=== PATIENT | female | born 1970 | race Caucasian/White ===

== ENCOUNTER 2020-12-12 09:15 | Outpatient (CLI) | payer OTHER, SELFPAY ==
--- NOTE | ~2020-12-12 | MM_ITS ---
EXAMINATION: MM screening bryan BI w aleksandr HISTORY: Screening mammogram, family history of breast cancer in her mother and sister. TECHNIQUE: Craniocaudal and mediolateral oblique 3-D tomosynthesis images were obtained and synthetic 2-D images were generated. CAD analysis was submitted and interpreted. COMPARISON: 04/21/2019, 01/29/2018 BREAST PARENCHYMAL COMPOSITION: The breasts are heterogeneously dense, which may obscure small masses . FINDINGS: RIGHT BREAST: There is no evidence of suspicious mass, calcification, or architectural distortion to suggest malignancy. There has been no significant interval change. LEFT BREAST: There is a spiculated mass in the posterior third of the upper outer quadrant of the aidan ast 13 cm from the nipple. IMPRESSION: 1. Left breast mass. 2. Additional mammographic views and possible breast ultrasound are recommended. BI-RADS Category 0: Incomplete: Needs additional imaging evaluation. Reviewed, dictated and finalized at location A. IMPRESSION: 1. Left breast mass. 2. Additional mammographic views and possible breast ultrasound are recommended . BI-RADS Category 0: Incomplete: Needs additional imaging evaluation.
== END 2020-12-12 09:16 | disposition home or self-care (01) ==
LOC: ANHIMG 09:21
PROVIDERS: PCP Family Medicine; Visit Provider Nurse Practitioner Family
DX: Z12.31 Encounter for screening mammogram for malignant neoplasm of breast (principal); R92.8 Other abnormal and inconclusive findings on diagnostic imaging of breast
CPT/HCPCS: 77063; 77067

== ENCOUNTER 2020-12-21 11:38 | Outpatient (CLI) | payer OTHER, SELFPAY ==
--- NOTE | ~2020-12-21 | MMUS_ITS ---
EXAMINATION: MM diagnostic mammo unilat LT, US breast LT limited HISTORY: Left breast mass on screening mammogram TECHNIQUE: Additional 3-D tomosynthesis images of the left breast were performed and synthetic 2-D im ages were generated. CAD analysis was submitted and interpreted. High resolution limited left breast ultrasound was performed. COMPARISON: 12/12/2020, 04/21/2019, 01/29/2018 FINDINGS: MAMMOGRAPHIC FINDINGS: There is a 1.5 x 0.8 cm irregular high density mass with spiculated margins in the posterior third of the upper outer quadrant breast at the 3:00 location 12 cm from the nipple. ULTRASOUND: There is a 1.4 x 0.9 cm irregular, not parallel, hypoechoic mass with spiculated margins at the 3:00 location 10 cm from the nipple. The mass demonstrates posterior acoustic shadowing and no definite in ternal vascularity. IMPRESSION: 1. Suspicious left breast mass. 2. Ultrasound-guided biopsy is recommended. BI-RADS category 5, highly suggestive of malignancy. Reviewed, dictated and finalized at location A. IMPRESSION: 1. Suspicious left breast mass. 2. Ultrasound-guided biopsy is recommended. BI-RADS category 5, highly suggestive of malignancy.
== END 2020-12-21 11:39 | disposition home or self-care (01) ==
LOC: ANHIMG 11:39
PROVIDERS: PCP Family Medicine; Visit Provider Nurse Practitioner Family
DX: R92.8 Other abnormal and inconclusive findings on diagnostic imaging of breast (principal)
CPT/HCPCS: 76642; 77065

== ENCOUNTER 2021-01-03 08:57 | Outpatient (CLI) | payer OTHER, SELFPAY ==
--- NOTE | ~2021-01-03 | US_ITS ---
EXAMINATION: US GUIDED NEEDLE BIOPSY DATE: 01/03/2021 10:32 CDT INDICATION: Suspicious sonographic mass at 3:00 12 cm from nipple TECHNIQUE AND FINDINGS: The risks and potential benefits of the procedure were discussed with the patient, and written inform ed consent was obtained. Timeout procedure was performed. After sterile preparation of the left breas t, 1% lidocaine was utilized for local anesthesia. A 14G spring-loaded biopsy gun needle was advanced to the edge of the region of interest from a media l approach utilizing sonographic guidance. A total of three tissue core samples were obtained throug h the lesion. An Inrad tissue marker clip was then placed at the biopsy site. Hemostasis was achieve d. A sterile bandage was applied. The patient tolerated procedure well and there was no evidence of immediate complication. The patien t was given verbal instructions prior to departing from the department. A two view mammogram was perf ormed to document tissue marker clip placement. The tissue samples were submitted to surgical patholo gy for histologic analysis. IMPRESSION: 1. Successful ultrasound guided biopsy of 3:00 left breast mass with biopsy marker placement. Please refer to pathology report for histologic analysis. Reviewed, dictated and finalized at Location A. Reviewed, dictated and finalized at location A. IMPRESSION: 1. Successful ultrasound guided biopsy of 3:00 left breast mass with biopsy ma rker placement. Please refer to pathology report for histologic analysis.
--- NOTE | ~2021-01-03 | MM_ITS ---
MM post biopsy invasive LT DATE: 01/03/2021 10:14 INDICATION: Post ultrasound-guided biopsy mammogram TECHNIQUE: Digital ML and cc views following ultrasound-guided biopsy of 3:00 lesion COMPARISON: 01/03/2021 ultrasound biopsy procedure left breast 12/21/2020 diagnostic left mammogram and limited left breast ultrasound FINDINGS: A biopsy marker is present in the outer mid left breast approximately 9 cm from nipple, sev eral centimeters anterior to the area of interest. This may be due to migration of the biopsy marker from the biopsy site. However, should the biopsy results come back negative, surgical biopsy is indic ated with mammographic localization to ensure that the area of abnormality on the mammogram is defini tively sampled and biopsied. IMPRESSION: Status post ultrasound-guided biopsy of 3:00 left breast lesion; marker is in unexpected position 3 cm anterior to the mammographic area of interest. Should the biopsy comes back negative, s urgical biopsy with mammographic localization is recommended Reviewed, dictated and finalized at Location A. Reviewed, dictated and finalized at location A. IMPRESSION: Status post ultrasound-guided biopsy of 3:00 left breast lesion; ma rker is in unexpected position 3 cm anterior to the mammographic area of intere st. Should the biopsy comes back negative, surgical biopsy with mammographic lo calization is recommended
== END 2021-01-03 08:58 | disposition home or self-care (01) ==
LOC: ANHIMG 09:00
PROVIDERS: PCP Nurse Practitioner Family; Visit Provider Nurse Practitioner Family
DX: C50.812 Malignant neoplasm of overlapping sites of left female breast (principal)
CPT/HCPCS: 19083; 88305; 88360; A4648

== ENCOUNTER 2021-01-08 02:14 | Day surgery (SDC) | payer OTHER, SELFPAY ==
[2020-12-28 14:51] VITALS: BMI 32.9
[2021-01-08 09:16] VITALS: BP 137/79; PULSE 73; RESP 16; TEMP 35.7; O2SAT 99; BMI 32.7
--- NOTE | 2021-01-08 09:42 | PM.HPGS ---
History of Present Illness History of Present Illness Consent: Risks, benefits, and alternatives have been discussed and questions answered. Patient agrees to proceed with procedure. Chief complaint: neoplasm screening Narrative: Mitzy Núeñz is a 50 year old female Referred for screening colonoscopy Review of Systems Review of Systems: All systems reviewed & are unremarkable except as noted in HPI and below PMFSH Past Medical History Medical History BMI 33.0-33.9,adult Screening mammogram, encounter for Family History Family History Sibling Hypertension Family history of malignant neoplasm of breast in first degree relative Social History Social History Smoking status: Never smoker Second hand tobacco smoke exposure: No Alcohol intake: current Substance use: never Substance use type: does not use Living arrangements: with family Gender identity (if verbalized by the patient): Female Sexual Orientation (if Verbalized by the Patient): Straight or Heterosexual Spiritual care concerns: No Meds Home Medications and Allergies Home Medications Medication Instructions Recorded Confirmed Type cholecalciferol (vitamin D3) 1,250 1,250 mcg PO WEEKLY 11/16/20 01/08/21 History mcg (50,000 unit) capsule famotidine 20 mg tablet 20 mg PO DAILY #90 tablet 11/16/20 01/08/21 Rx venlafaxine 75 mg capsule,extended 75 mg PO DAILY #90 cap 11/16/20 01/08/21 Rx release 24 hr Allergies Allergy/AdvReac Type Severity Reaction Status Date / Time oxycodone Allergy Severe RASH, HIVES Verified 01/08/21 09:27 phentermine Allergy Mild hives Verified 01/08/21 09:27 Vital Signs Vital Signs - 24 hr 01/08/21 09:16 Temperature 35.7 C L Pulse Rate 73 Respiratory Rate 16 Blood Pressure 137/79 Pulse Oximetry 99 Exam Resp: Auscultation: clear to auscultation bilaterally Cardio: Rate: regular rate Rhythm: regular rhythm GI: GI Palp: Yes Soft to palpation and No Tenderness to palpation present (GI) Assessment and Plan Assessment and plan (1) Screening for colon cancer: Code(s): Z12.11 - Encounter for screening for malignant neoplasm of colon Status: Acute Assessment and Plan: Colonoscopy with possible biopsy or polypectomy or cautery or injection of substances.
--- NOTE | 2021-01-08 09:52 | WPDANESEPPF ---
Anes - Initial Pre Proc Eval Procedure: Operation Date: 01/08/21 10:00 Proposed Procedures p Screening Colonoscopy - Michael Denis MD Date/Time: 01/08/21 09:52 Surgeon: Michael Denis MD Pre Op Diagnosis: neoplasm screening Patient Data Age: 50 Gender: F Height: 1.55 m Weight: 78.5 kg Last Vital Signs Temp 35.7 C L 01/08/21 09:16 Pulse 73 01/08/21 09:16 Resp 16 01/08/21 09:16 BP 137/79 01/08/21 09:16 Pulse Ox 99 01/08/21 09:16 Allergies Allergy/AdvReac Type Severity Reaction Status Date / Time oxycodone Allergy Severe RASH, HIVES Verified 01/08/21 09:27 phentermine Allergy Mild hives Verified 01/08/21 09:27 Home Medications Medication Instructions Recorded Confirmed Type cholecalciferol (vitamin D3) 1,250 1,250 mcg PO WEEKLY 11/16/20 01/08/21 History mcg (50,000 unit) capsule famotidine 20 mg tablet 20 mg PO DAILY #90 tablet 11/16/20 01/08/21 Rx venlafaxine 75 mg capsule,extended 75 mg PO DAILY #90 cap 11/16/20 01/08/21 Rx release 24 hr Patient hx anesthesia problems: none Family hx anesthesia problems: none PMFSH Past Medical History Medical History BMI 33.0-33.9,adult Screening mammogram, encounter for Family History Family History Sibling Hypertension Family history of malignant neoplasm of breast in first degree relative Social History Social History Smoking status: Never smoker Second hand tobacco smoke exposure: No Alcohol intake: current Substance use: never Substance use type: does not use Living arrangements: with family Gender identity (if verbalized by the patient): Female Sexual Orientation (if Verbalized by the Patient): Straight or Heterosexual Spiritual care concerns: No Anes - Eval Final PreProcedure Day of Procedure 01/08/21 09:52 Patient weight: obese Heart: regular rate and rhythm Lungs: clear to auscultation Airway: Mallampati scale class II Neurological: alert and oriented Last oral intake: >/= 8 hours ASA classification: II Emergent: no Anesthetic plan: proceed Anesthesia type and monitoring: general GIVS and standard monitoring Informed Consent: The patient's anesthetic plan and its attendant risks and benefits were discussed with the patient/family/POA. Questions were solicited and answers provided to the satisfaction of the patient/family/POA.
[2021-01-08] MEDS: LACTATED RINGERS 1,000 ML 150 ML IV CONT (10:14)
[2021-01-08 10:36] VITALS: BP 119/73; PULSE 79; RESP 12; O2SAT 99
[2021-01-08 10:46] VITALS: BP 110/54; PULSE 70; RESP 18; O2SAT 100
[2021-01-08 10:56] VITALS: BP 122/76; PULSE 70; RESP 18; O2SAT 100
== END 2021-01-08 11:07 | disposition home or self-care (01) ==
PROVIDERS: PCP Nurse Practitioner Family; Visit Provider Internal Medicine Gastroenterology
PROC: 0DJD8ZZ Inspection of Lower Intestinal Tract, Via Natural or Artificial Opening Endoscopic (ICD-10-PCS; CPT 45378; principal; 2021-01-08 10:00)
DX: Z12.11 Encounter for screening for malignant neoplasm of colon (principal); E66.9 Obesity, unspecified; Z68.32 Body mass index [BMI] 32.0-32.9, adult
CPT/HCPCS: 45378; J1200; J2704; J7120

== ENCOUNTER 2021-01-23 09:38 | Outpatient (CLI) | payer OTHER, SELFPAY ==
--- NOTE | ~2021-01-23 | MR_ITS ---
EXAMINATION: MR breast BI wo/w con INDICATION: Malignant neoplasm of the upper outer quadrant of the left breast TECHNIQUE: Axial VIBRANT pre and dynamic post contrast, Sagittal VIBRANT post contrast, Axial T2 STIR ASSET COMPARISON: None CONTRAST: Multihance, 15 cc BREAST COMPOSITION: Heterogeneous fibroglandular tissue FINDINGS: RIGHT BREAST: There is marked background parenchymal enhancement. No definite abnormal enhancement is present after contrast administration. No pathologically enlarged axillary or internal mammary lymph nodes are identified. LEFT BREAST: There is marked background parenchymal enhancement. There is an approximately 3.1 x 2.3 x 3.5 cm irregular mass with spiculated margins in the upper-outer quadrant at the 2:00 location in t he middle/posterior third of the breast 8.5 cm from the nipple with heterogeneous enhancement. There are approximately 3 cm of linear nonmass enhancement extending anteriorly and laterally from the mass . No definite additional abnormal enhancement is identified. IMPRESSION: 1. Biopsy-proven malignancy in the upper outer quadrant of the left breast with approximately 3 mm of linear nonmass enhancement extending anteriorly. No definite additional suspicious mass is identifie d although sensitivity is limited by marked background enhancement. BI-RADS category 6, Known Biopsy-Proven malignancy. Reviewed, dictated and finalized at location A. IMPRESSION: 1. Biopsy-proven malignancy in the upper outer quadrant of the left breast with approximately 3 mm of linear nonmass enhancement extending anteriorly. No defi nite additional suspicious mass is identified although sensitivity is limited b y marked background enhancement. BI-RADS category 6, Known Biopsy-Proven malignancy.
[2021-01-23 10:22] LABS: Estimated Glomerular Filt Rate > 60
== END 2021-01-23 09:39 | disposition home or self-care (01) ==
PROVIDERS: PCP Family Medicine; Visit Provider Internal Medicine Hematology & Oncology
DX: C50.412 Malignant neoplasm of upper-outer quadrant of left female breast (principal)
CPT/HCPCS: 77049; A9577; C8908

== ENCOUNTER 2021-02-06 08:00 | Outpatient (CLI) | payer OTHER, SELFPAY ==
--- NOTE | ~2021-02-06 | CT_ITS ---
EXAMINATION: CTA abdomen pelvis DATE: 02/06/2021 08:43 INDICATION: Left breast cancer, vascular mapping for planned reconstruction. TECHNIQUE: Computed tomographic angiography (CTA) of the abdomen and pelvis was performed with 100 mL Omnipaque-350 intravenous contrast. Maximum intensity projection 3D-reconstructions of the aorta and other arteries were constructed by the technologist on a separate workstation. The dose-length produ ct (DLP) was 1029.77 mGy-cm. Automated exposure control and iterative reconstruction technique were e mployed. COMPARISON: None. FINDINGS: The aorta is normal. There is no aneurysm or dissection. The celiac axis, superior mesenter ic artery, and inferior mesenteric artery are unremarkable. Single renal arteries are present bilater ally. The deep inferior epigastric arteries arise from their expected location immediately from the e xternal iliac arteries. There appears to be a single trunk coursing superiorly for both deep inferior epigastric arteries. The first identified branches on the right are intramuscular and approximately 7 cm from the origin. The first identified branches on the left are intramuscular and approximately 7 .5 cm from the origin. The right superficial inferior epigastric artery shares a common origin with t he superficial circumflex iliac artery. The left superficial epigastric artery shares a common origin with the superficial circumflex iliac artery. The bilateral superficial epigastric arteries are dimi nutive in caliber above the level of the iliac crests. The bilateral superior and inferior gluteal ar teries are patent and appear equivalent in caliber. No significant atherosclerosis or stenosis is stephany ntified in the visualized vessels. The liver, spleen, pancreas, gallbladder, and adrenal glands are normal. The kidneys are unremarkable . No pathologically enlarged abdominal or pelvic lymph nodes are identified. There is no free intrape ritoneal gas or evidence of bowel obstruction. A moderate volume of colonic stool is present. There i s mild lumbar spondylosis. IMPRESSION: 1. Vascular anatomy as detailed above. Reviewed, dictated and finalized at location A.
== END 2021-02-06 08:01 | disposition home or self-care (01) ==
LOC: ANHIMG 08:04
PROVIDERS: PCP Family Medicine
DX: C50.912 Malignant neoplasm of unspecified site of left female breast (principal)
CPT/HCPCS: 74174; Q9967

== ENCOUNTER → 2021-02-28 00:25 | Outpatient (CLI) | payer OTHER, SELFPAY ==
[2021-02-28 16:56] LABS: SARS-CoV-2 RNA PCR Negative
== END ==
PROVIDERS: PCP Family Medicine
DX: C50.412 Malignant neoplasm of upper-outer quadrant of left female breast (principal); Z17.0 Estrogen receptor positive status [ER+]
CPT/HCPCS: C9803; U0003; U0005

== ENCOUNTER 2021-04-04 14:14 | Outpatient (CLI) | payer OTHER, SELFPAY ==
--- NOTE | ~2021-04-04 | XR_ITS ---
EXAMINATION: XR chest 2V EXAM DATE: 04/04/2021 14:36 INDICATION: Fluid Retention. Ca. Started Chemo 2 Wks Ago. TECHNIQUE: Frontal and lateral projections of the chest obtained and reviewed. Comparison is made to prior examination from 09/08/2019. FINDINGS: There is a portacatheter with intact line. The lungs are clear. There are no pleural effus ions. The cardiomediastinal silhouette is within normal limits. There is no pneumothorax suspected. Left breast upper outer quadrant surgical clips. IMPRESSION: No acute cardiopulmonary findings. Reviewed, dictated and finalized at location B.
== END 2021-04-04 14:15 | disposition home or self-care (01) ==
LOC: ANHIMG 14:24
PROVIDERS: PCP Family Medicine
DX: R60.9 Edema, unspecified (principal); R06.00 Dyspnea, unspecified; C50.412 Malignant neoplasm of upper-outer quadrant of left female breast; Z17.0 Estrogen receptor positive status [ER+]
CPT/HCPCS: 71046

== ENCOUNTER → 2021-07-11 02:11 | Outpatient (CLI) | payer OTHER, SELFPAY ==
[2021-07-11 17:56] LABS: SARS-CoV-2 RNA PCR Negative
== END ==
PROVIDERS: PCP Family Medicine
DX: Z01.812 Encounter for preprocedural laboratory examination (principal); Z20.822 Contact with and (suspected) exposure to COVID-19
CPT/HCPCS: C9803; U0003; U0005

== ENCOUNTER 2021-08-24 12:49 | Outpatient (CLI) | payer OTHER, SELFPAY ==
--- NOTE | ~2021-08-24 | CT_ITS ---
EXAMINATION: CT diagnostic chest w con DATE: 08/24/2021 13:34 INDICATION: Cough. Upper outer quadrant left breast malignancy; recent bilateral mastectomy.. TECHNIQUE: Computed tomography (CT) of the chest was performed with 75 CC Omnipaque 350 intravenous c ontrast. Automated exposure control and iterative reconstruction technique were employed. Exam dose: 200.40 mGy-cm total exam DLP. COMPARISON: 04/04/2021 2 view chest FINDINGS: Bilateral breast financial data analyst implants. The lungs are clear of infiltrate or consolidation. No pulmonary mass density. Right Port-A-Cath catheter with tip at superior cavoatrial junction. Normal heart size. No pericardial effusion. No thoracic aortic aneurysm or dissection. No hilar or me diastinal mass lesion or lymphadenopathy. Small sliding hiatal hernia. Normal morphology of the adrenal glands. Included upper abdominal structures are unremarkable. IMPRESSION: Status post bilateral mastectomy with implant. Breast expanders Right Port-A-Cath catheter tip at superior cavoatrial junction Reviewed, dictated and finalized at Location A. Reviewed, dictated and finalized at location A.
== END 2021-08-24 12:50 | disposition home or self-care (01) ==
LOC: ANHIMG 12:53
PROVIDERS: PCP Family Medicine
DX: C50.412 Malignant neoplasm of upper-outer quadrant of left female breast (principal); Z17.0 Estrogen receptor positive status [ER+]
CPT/HCPCS: 71260; Q9967

== ENCOUNTER 2021-12-27 13:32 | Outpatient (CLI) | payer OTHER, SELFPAY ==
--- NOTE | 2021-12-27 13:40 | ECHO_ITS ---
Patient Info Name: Mitzy Núñez Age: 51 years : 1970 Gender: Female Ht: 61 in Wt: 178 lbs BSA: 1.90 m2 HR: 78 bpm BP: 121 / 86 mmHg Technical Quality: Good Exam Date: 12/27/2021 2:11 PM Exam Location: [facility] Patient Status: Outpatient Admit Date: 12/27/2021 Staff Ordering Physician: Kalli Dailey Retail Sales Associate Seasonal: Kathy Montejo RDCS Attending Provider: Kalli Dailey Referring Physician: Asim FLANAGAN; Exam Type: CA echo doppler color flow Study Info Indications - cardiomegaly hx/o breast ca radiation chemo mastectomy Complete two-dimensional, color flow and Doppler transthoracic echocardiogram is performed. Summary 1. Complete two-dimensional, color flow and Doppler transthoracic echocardiogram is performed. 2. Left ventricular chamber dimension is normal. 3. Left ventricular systolic function is normal, estimated at 60-65%. 4. The left ventricular diastolic function is grade I diastolic dysfunction. 5. E/e' 7 is not elevated. 6. Global longitudinal strain is normal at -17.4%. 7. Right atrial mass appears to extend from IVC to atrial septum suggestive of probable prominent eustachian valve. 8. No pulmonary hypertension, estimated pulmonary arterial systolic pressure is 28 mmHg. Left Ventricle E/e' 7 is not elevated. Global longitudinal strain is normal at -17.4%. Left ventricular chamber dimension is normal. Left ventricular systolic function is normal, estimated at 60-65%. The left ventricular diastolic function is grade I diastolic dysfunction. Right Ventricle Right ventricular chamber dimension is normal. Right ventricular systolic function is normal. Left Atria Left atrial chamber dimension is normal. Right Atria Right atrial mass appears to extend from IVC to atrial septum suggestive of probable prominent eustachian valve. Right atrial chamber dimension is normal. Aortic Valve The aortic valve is trileaflet. There is no aortic valve stenosis. There is no aortic valve regurgitation. Pulmonic Valve There is no pulmonic regurgitation. Mitral Valve There is no mitral valve stenosis. There is no mitral valve regurgitation. Tricuspid Valve There is no tricuspid valve regurgitation. No pulmonary hypertension, estimated pulmonary arterial systolic pressure is 28 mmHg. Pericardium/Pleural There is no pericardial effusion. Inferior Vena Cava Normal inferior vena cava with >50% collapse upon inspiration consistent with normal right atrial pressure, 5 mmHg. Aorta The aortic root size at the sinus of Valsalva is normal. Left Ventricular Outflow Tract Name Value Normal LVOT 2D LVOT Diameter 2.0 cm LVOT Doppler LVOT Peak Gradient 4 mmHg LVOT Mean Gradient 3 mmHg LVOT VTI 19 cm LVOT VTI/AV VTI Ratio 0.7 LVOT Stroke Volume 62 ml LVOT CO 15.0 l/min LVOT CI 7.9 l/min/m2 Pulmonic Valve
== END 2021-12-27 13:33 | disposition home or self-care (01) ==
LOC: ANHCARD 13:33
PROVIDERS: PCP Family Medicine; Visit Provider Nurse Practitioner Family
DX: I51.7 Cardiomegaly (principal)
CPT/HCPCS: 93306

== ENCOUNTER 2022-02-06 01:23 | Day surgery (SDC) | payer OTHER, SELFPAY ==
[2021-12-31 13:34] VITALS: BMI 33.3
--- NOTE | 2022-02-05 09:18 | PM.HPGS ---
History of Present Illness History of Present Illness Consent: Risks, benefits, and alternatives have been discussed and questions answered. Patient agrees to proceed with procedure. Chief complaint: GERD Narrative: Mitzy Núñez is a 51 year old female who reported that she has heartburn almost nightly despite taking omeprazole OTC and famotidine 20 mg daily.? She has been on a PPI or famotidine for greater than 5 years.? She also will have intermittent episodes of vomiting or regurgitation if she over eats or drinks alcohol.? She does not typically have nausea and vomiting when she does not over eat.? She denies any abdominal pain, dysphagia, odynophagia.? She has been undergoing chemotherapy and radiation therapy for breast cancer. when seen in our office 7 weeks ago, her omeprazole dose was increased to 40 mg a day. Her symptoms have improved significantly since then. She is not vomiting nearly as often and has much less heartburn. Review of Systems Review of Systems: All systems reviewed & are unremarkable except as noted in HPI and below PMFSH Past Medical History Medical History BMI 33.0-33.9,adult Screening mammogram, encounter for Surgical History Surgical History H/O bilateral mastectomy H/O lumpectomy H/O rectocele repair H/O: hysterectomy History of lymph node dissection of left axilla History of removal of Port-a-Cath Family History Family History Sibling Hypertension Family history of malignant neoplasm of breast in first degree relative Social History Social History Smoking status: Never smoker Second hand tobacco smoke exposure: No Alcohol intake: current Drinks per week: 2 Substance use: never Substance use type: does not use Living arrangements: with family Gender identity (if verbalized by the patient): Female Sexual Orientation (if Verbalized by the Patient): Straight or Heterosexual Spiritual care concerns: No Meds Home Medications and Allergies Home Medications Medication Instructions Recorded Confirmed Type letrozole 2.5 mg tablet 2.5 mg PO DAILY 12/13/21 02/04/22 History omeprazole 40 mg capsule,delayed 40 mg PO DAILY #30 caps 12/13/21 02/04/22 Rx release calcium polycarbophil 625 mg 625 mg PO DAILY 12/31/21 02/04/22 History tablet (FiberCon) venlafaxine 75 mg capsule,extended 75 mg PO DAILY 12/31/21 02/04/22 History release 24 hr abemaciclib 150 mg tablet 150 mg PO BID 02/04/22 02/04/22 History (Verzenio) Allergies Allergy/AdvReac Type Severity Reaction Status Date / Time oxycodone Allergy Severe RASH, HIVES Verified 02/06/22 11:49 hydrocodone Allergy Intermediate rash Verified 02/06/22 11:49 phentermine Allergy Mild hives Verified 02/06/22 11:49 doxycycline Allergy Rash Verified 02/06/22 11:49 avacado Allergy Severe Flushing Uncoded 02/06/22 11:49 Exam Const: General: alert Orientation/consciousness: patient oriented x3 Resp: Auscultation: clear to auscultation bilaterally Cardio: Rhythm: regular rhythm GI: GI Palp: Yes Soft to palpation and No Tenderness to palpation present (GI) Neuro: General: patient oriented x3 Assessment and Plan Assessment and plan (1) GERD (gastroesophageal reflux disease): Code(s): K21.9 - Gastro-esophageal reflux disease without esophagitis Status: Acute Assessment and Plan: EGD with possible biopsy or dilatation or cautery.
[2022-02-06 11:50] VITALS: BP 134/84; PULSE 95; RESP 17; TEMP 36.6; O2SAT 98
[2022-02-06] MEDS: LACTATED RINGERS 1,000 ML 150 ML IV CONT (12:01)
--- NOTE | 2022-02-06 12:01 | WPDANESEPPF ---
Anes - Initial Pre Proc Eval Procedure: Operation Date: 02/06/22 13:00 Proposed Procedures p Esophagogastroduodenoscopy - Michael Denis MD Date/Time: 02/06/22 12:01 Surgeon: Michael Denis MD Pre Op Diagnosis: GERD Patient Data Age: 51 Gender: F Height: 1.55 m Weight: 82 kg Last Vital Signs Temp 36.6 C 02/06/22 11:50 Pulse 95 02/06/22 11:50 Resp 17 02/06/22 11:50 BP 134/84 02/06/22 11:50 Pulse Ox 98 02/06/22 11:50 O2 Del Method Room Air 02/06/22 11:50 Allergies Allergy/AdvReac Type Severity Reaction Status Date / Time oxycodone Allergy Severe RASH, HIVES Verified 02/06/22 11:49 hydrocodone Allergy Intermediate rash Verified 02/06/22 11:49 phentermine Allergy Mild hives Verified 02/06/22 11:49 doxycycline Allergy Rash Verified 02/06/22 11:49 avacado Allergy Severe Flushing Uncoded 02/06/22 11:49 Home Medications Medication Instructions Recorded Confirmed Type letrozole 2.5 mg tablet 2.5 mg PO DAILY 12/13/21 02/04/22 History omeprazole 40 mg capsule,delayed 40 mg PO DAILY #30 caps 12/13/21 02/04/22 Rx release calcium polycarbophil 625 mg 625 mg PO DAILY 12/31/21 02/04/22 History tablet (FiberCon) venlafaxine 75 mg capsule,extended 75 mg PO DAILY 12/31/21 02/04/22 History release 24 hr abemaciclib 150 mg tablet 150 mg PO BID 02/04/22 02/04/22 History (Verzenio) Patient hx anesthesia problems: none Family hx anesthesia problems: none Results Review: All pre-operative results and documents have been reviewed as part of the pre-operative evaluation. [facility] Past Medical History Medical History BMI 33.0-33.9,adult Screening mammogram, encounter for Surgical History Surgical History H/O bilateral mastectomy H/O lumpectomy H/O rectocele repair H/O: hysterectomy History of lymph node dissection of left axilla History of removal of Port-a-Cath Family History Family History Sibling Hypertension Family history of malignant neoplasm of breast in first degree relative Social History Social History Smoking status: Never smoker Second hand tobacco smoke exposure: No Alcohol intake: current Drinks per week: 2 Substance use: never Substance use type: does not use Living arrangements: with family Gender identity (if verbalized by the patient): Female Sexual Orientation (if Verbalized by the Patient): Straight or Heterosexual Spiritual care concerns: No Anes - Eval Final PreProcedure Day of Procedure 02/06/22 12:01 Patient weight: obese Heart: regular rate and rhythm Lungs: clear to auscultation Airway: Mallampati scale class II Neurological: alert and oriented Last oral intake: >/= 8 hours ASA classification: III Emergent: no Anesthetic plan: proceed Anesthesia type and monitoring: general GIVS and standard monitoring Results Review: All pre-operative results and documents have been reviewed as part of the pre-operative evaluation. Informed Consent: The patient's anesthetic plan and its attendant risks and benefits were discussed with the patient/family/POA. Questions were solicited and answers provided to the satisfaction of the patient/family/POA.
[2022-02-06 12:48] VITALS: BP 122/96; PULSE 75; RESP 20; O2SAT 99
[2022-02-06 12:58] VITALS: BP 115/67; PULSE 77; RESP 22; O2SAT 97
[2022-02-06 13:08] VITALS: BP 135/87; PULSE 79; RESP 22; O2SAT 98
== END 2022-02-06 13:25 | disposition home or self-care (01) ==
PROVIDERS: PCP Family Medicine; Visit Provider Internal Medicine Gastroenterology
PROC: 0DJ08ZZ Inspection of Upper Intestinal Tract, Via Natural or Artificial Opening Endoscopic (ICD-10-PCS; CPT 43235; principal; 2022-02-06 13:00)
DX: K21.9 Gastro-esophageal reflux disease without esophagitis (principal); K44.9 Diaphragmatic hernia without obstruction or gangrene; E66.9 Obesity, unspecified; Z68.34 Body mass index [BMI] 34.0-34.9, adult; R11.10 Vomiting, unspecified
CPT/HCPCS: 43235; J2704; J7120

== ENCOUNTER 2023-06-26 12:23 | Outpatient (CLI) | payer OTHER, SELFPAY ==
[2023-06-26 12:34] LABS: Basophils Absolute Auto 0.1 K/mm3 (0.0-0.1); Basophils Percent Auto 1.1 % (0.2-1.2); Eosinophils Absolute Auto 0.3 K/mm3 (0-0.3); Eosinophils Percent Auto 3.9 % (0-4.4); Hematocrit 38.2 % (37.0-47.0); Hemoglobin 12.6 g/dL (12.0-15.0); Immature Granulocyte Absolute 0.01 K/mm3 (0.00-0.031); Immature Granulocyte Percent A 0.1 % (0-0.5); Lymphocytes Absolute Auto 2.22 K/mm3 (0.9-3.2); Lymphocytes Percent Auto 25.5 % (18.3-44.2); Mean Corpuscular Hemoglobin 29.2 pg (26-34); Mean Corpuscular Volume 88.4 fl (80-100); Mean Platelet Volume 8.7 fl (7.4-10.4); Monocytes Absolute Auto 0.7 K/mm3 (0.1-0.6); Monocytes Percent Auto 7.6 % (2.6-8.5); Neutrophils Absolute Auto 5.4 K/mm3 (1.3-6.7); Neutrophils Percent Auto 61.8 % (45.5-73.1); Platelet Count Result 335 k/mm3 (150-375); Red Blood Count 4.32 M/mm3 (4.2-5.4); Red Cell Distribution Width 12.9 % (11.5-14.5); White Blood Count 8.7 K/mm3 (4.5-10.0)
[2023-06-26 13:40] LABS: Alanine Aminotransferase 16 U/L (6-35); Albumin Level 4.3 g/dL (3.5-5.1); Alkaline Phosphatase 102 U/L (38-126); Anion Gap 8 mmol/L (8-16); Aspartate Amino Transferase 24 U/L (14-36); Bilirubin,Total 0.3 mg/dL (0.2-1.3); Blood Urea Nitrogen 10 mg/dL (7-17); Calcium 9.2 mg/dL (8.4-10.2); Carbon Dioxide 26 mmol/L (22-30); Chloride 105 mmol/L (98-107); Estimated Glomerular Filt Rate > 60; Glucose 93 mg/dL (65-110); Potassium 4.1 mmol/L (3.4-5.0); Sodium 139 mmol/L (137-145)
[2023-07-02 07:17] LABS: CA 15-3 20 U/mL (<32)
== END 2023-06-26 12:24 | disposition home or self-care (01) ==
LOC: ANHLAB 12:25
PROVIDERS: PCP Family Medicine; Visit Provider Internal Medicine Hematology & Oncology
DX: C77.3 Secondary and unspecified malignant neoplasm of axilla and upper limb lymph nodes (principal)
CPT/HCPCS: 36415; 80053; 85025; 86300

== ENCOUNTER 2024-04-23 21:01 | Emergency (ER) | payer OTHER, SELFPAY ==
[2024-04-23 21:04] VITALS: BP 152/87; PULSE 88; RESP 15; TEMP 36.1; O2SAT 100
[2024-04-23 21:14] VITALS: BP 123/103; PULSE 83; RESP 13; O2SAT 99
[2024-04-23 21:17] VITALS: O2SAT 99
[2024-04-23] MEDS: FAMOTIDINE 20 MG/2 ML VIAL IV PUSH (21:24)
[2024-04-23] MEDS: diphenhydrAMINE HCl INJ 50 MG/ML VIAL IV PUSH (21:24)
[2024-04-23] MEDS: methylPREDNISolone SOD SUCC 125 MG VIAL IV PUSH (21:25)
[2024-04-23 22:04] VITALS: BP 133/89; PULSE 77; RESP 14; O2SAT 99
[2024-04-23] MEDS: EPINEPHrine HCL INJ 1 MG/ML AMPUL 0.3 MG IM (22:17)
--- NOTE | 2024-04-23 22:59 | PC.NURSE ---
report taken from Kalli ADAME, all questions answered. Pt states she feels that the epi helped with her swelling and breathing. VSS, AxO4 ambulatory to bathroom.
[2024-04-24] VITALS (13 sets, daily range): BP systolic 111–127; BP diastolic 57–76; PULSE 72–75; RESP 11–14; O2SAT 95–99
--- NOTE | 2024-04-24 00:15 | ED_ITS ---
HPI - General Adult General Chief complaint: Allergic Reaction Stated complaint: allergiv reaction, throat swelling Time Seen by Provider: 04/23/24 21:14 History of Present Illness HPI narrative: patient 53-year-old female who presents emergency department chief complaint of throat swelling. The patient ate a [employer] restaurant possibly exposed avocado which she has had reactions before in the past patient reports she has a fullness feeling in her throat patient states that she feels as though her voice is a little off Related Data Home Medications Medication Instructions Recorded Confirmed calcium polycarbophil 625 mg 625 mg PO DAILY 12/31/21 01/06/23 tablet (FiberCon) tamoxifen 20 mg tablet 20 mg PO DAILY 01/06/23 01/06/23 Allergies Allergy/AdvReac Type Severity Reaction Status Date / Time oxycodone Allergy Severe RASH, HIVES Verified 04/23/24 21:18 hydrocodone Allergy Intermediate rash Verified 04/23/24 21:18 phentermine Allergy Mild hives Verified 04/23/24 21:18 gabapentin Allergy Unknown Hives Verified 04/23/24 22:14 doxycycline Allergy Rash Verified 04/23/24 21:18 avacado Allergy Severe Anaphylaxis Uncoded 04/23/24 21:19 Review of Systems Review of Systems: A 10 system review of systems was completed on the patient and is negative except for what is stated in the HPI. Nursing and ancillary documentation was reviewed. [facility] Past Medical History Medical History BMI 33.0-33.9,adult BMI 34.0-34.9,adult Screening mammogram, encounter for Surgical History Surgical History H/O bilateral mastectomy H/O lumpectomy H/O rectocele repair H/O: hysterectomy History of lymph node dissection of left axilla History of removal of Port-a-Cath Family History Family History Sibling Hypertension Family history of malignant neoplasm of breast in first degree relative Breast cancer Father Hypertension Mother Breast cancer Social History Social History Smoking status: Never smoker Second hand tobacco smoke exposure: No Alcohol intake: current Drinks per week: 2 Substance use: never Substance use type: does not use Lack of Transportation: No Lack of Food: Never True Current Housing: I Have Housing Concerned About Future Housing: No Difficulty Paying Gas/Electric Bills: No Difficulty Paying for Meds: No Currently Unemployed: No Education: Associate Degree Difficulty w/ Childcare or Family Care: No Living arrangements: with family Occupation/Education: occupation Additional occupation/education comments: [employer] Gender identity (if verbalized by the patient): Female Sexual Orientation (if Verbalized by the Patient): Straight or Heterosexual Spiritual care concerns: No Exam Narrative: GENERAL: Well-appearing, well-nourished, and in no acute distress. HEAD: Normocephalic, atraumatic. EYES: PERRLA and EOMI. ENT: Nares clear, no rhinorrhea or epistaxis. Mucous membranes moist. NECK: Supple. CHEST: Clear to auscultation. No respiratory distress. HEART: Regular rate and rhythm. No murmur heard. Normal peripheral pulses. ABDOMEN: Soft, nontender, nondistended, normal active bowel sounds. EXTREMITIES: Normal range of motion. No edema. SKIN: Warm, dry, no rash. NEURO: No focal deficits. Alert and oriented x3. PSYCH: Normal mood and affect. Course Vital Signs Vital signs: Vital Signs Temperature 36.1 C L 04/23/24 21:04 Pulse Rate 88 04/23/24 21:04 Respiratory Rate 15 04/23/24 21:04 Blood Pressure 152/87 H 04/23/24 21:04 Pulse Oximetry 100 04/23/24 21:04 Oxygen Delivery Room Air 04/23/24 21:04 Temperature 36.1 C L 04/23/24 21:04 Pulse Rate 73 04/24/24 01:31 Respiratory Rate 11 L 04/24/24 01:31 Blood Pressure 127/76 04/24/24 01:31 Pulse Oximetry 97 04/24/24 01:31 Oxygen Delivery Room Air 04/23/24 21:17 Medical Decision Making [facility] Narrative Medical decision making narrative: differential diagnosis includes allergic reaction, patient was treated initially with steroids Benadryl and Pepcid patient was still having symptoms and patient was given epinephrine. The patient has been observed for 4 hours and is doing much better at this point Vital Signs Vital Signs: Vital Signs Temperature 36.1 C L 04/23/24 21:04 Pulse Rate 88 04/23/24 21:04 Respiratory Rate 15 04/23/24 21:04 Blood Pressure 152/87 H 04/23/24 21:04 Pulse Oximetry 100 04/23/24 21:04 Oxygen Delivery Room Air 04/23/24 21:04 Temperature 36.1 C L 04/23/24 21:04 Pulse Rate 73 04/24/24 01:31 Respiratory Rate 11 L 04/24/24 01:31 Blood Pressure 127/76 04/24/24 01:31 Pulse Oximetry 97 04/24/24 01:31 Oxygen Delivery Room Air 04/23/24 21:17 Discharge Plan Discharge Clinical Impression: Allergic reaction Patient Disposition: Home, Self-Care Condition: Stable Instructions: Antibiotic Form, General Allergic Reaction (ED) Prescriptions: New prednisone 20 mg tablet 40 mg PO DAILY 5 Days Qty: 10 0RF epinephrine 0.3 mg/0.3 mL auto-injector 0.3 ml IM Q5-15M PRN (Reason: anaphylaxis) Qty: 2 0RF Rx Instructions: do not exceed 3 doses per episode No Action tamoxifen 20 mg tablet 20 mg PO DAILY calcium polycarbophil [FiberCon] 625 mg Tablet 625 mg PO DAILY omeprazole 40 mg capsule,delayed release(DR/EC) See Rx Instructions .ROUTE .COMPLEX Qty: 90 3RF Dose Instruction: TAKE 1 CAPSULE BY MOUTH DAILY Rx Instructions: TAKE 1 CAPSULE BY MOUTH DAILY venlafaxine 75 mg capsule,extended release 24hr See Rx Instructions .ROUTE .COMPLEX Qty: 90 3RF Dose Instruction: TAKE 1 CAPSULE BY MOUTH DAILY Rx Instructions: TAKE 1 CAPSULE BY MOUTH DAILY Follow-up/Referrals: Uziel Foss MD [Primary Care Provider] - Time of Disposition: 02:34
== END 2024-04-24 02:53 | disposition home or self-care (01) ==
PROVIDERS: Emergency Provider Emergency Medicine; PCP Family Medicine
DX: T78.40XA Allergy, unspecified, initial encounter (principal); Z90.13 Acquired absence of bilateral breasts and nipples; Z90.710 Acquired absence of both cervix and uterus; Z79.899 Other long term (current) drug therapy; X58.XXXA Exposure to other specified factors, initial encounter
CPT/HCPCS: 96372; 96374; 96375; 99284; J0171; J1200; J2919

== ENCOUNTER 2025-01-20 13:48 | Outpatient (CLI) | payer OTHER, SELFPAY ==
--- OUTSIDE RECORDS SUMMARY | 2025-01-20 13:52 | XMS_ITS ---
Author Organization [facility] Administrative Offices Address [address] [place] [id number] Care Team Providers Care Multimedia Manager Name Role Phone Uziel Foss MD Primary Care Provider [phone] Active Problems Problem Noted Date Diagnosed Date S/P TRAM (transverse rectus abdominis muscle) flap breast reconstruction 03/27/2023 Personal history of malignant neoplasm of breast 06/05/2022 Status post bilateral mastectomy 06/05/2022 Personal history of radiation therapy 06/05/2022 Malignant neoplasm of upper- outer quadrant of left female breast 01/10/2021 Cancer Staging:Clinical:Stage IIA(cT3, cN1(sn), cM0, G2, ER+, RI+, HER2-) - Signed by Carl Ram MD on 08/07/2021 Overview (09/24/2021): Stage: Clinical T2N0;ypT3(m) pN1 Date of diagnosis: 01/03/2021 Diagnosis: LEFT IDC ER(+) RI(+) Her 2(-) Pre- chemo: 06/12 LN (10 mm focus) Post-chemo: multifocal, largest 51 mm Surgeon: Raven Silverman Surgery: 03/05/2021 left SLN; 03/16/2021 right port; 07/16/2021 left lump 07/31/2021 bilateral TM; 09/24/2021 port removal Medical Oncologist: Yo Chemotherapy: Radiation Oncologist: Radiation: Hormonal therapy: Genetics: Current Treatment and Therapy Plans No current plan information found. Past Treatment and Therapy Plans ONCOLOGY TREATMENT Plan Name Start Date Discontinue Date Treatment Medications Discontinue Reason Plan Provider Cycles OP ONC BREAST_ TC_EVER Y 21 DAYS 03/21/20 21 08/16/2021 cycloPHOSphamide (200 mg/mL) IVPBcycloPHOSphamide (CYTOXAN)DOCEtaxel (TAXOTERE) IVPB Therapy Complete Carl Ram MD 5 of 6 cycles started
--- OUTSIDE RECORDS SUMMARY | 2025-01-20 13:53 | XMS_ITS | Clinical Summary ---
Author Organization [facility] Address [address] [place] [address] Care Team Providers Care Patient Sitter Name Role Phone Cisco Morgan MD Primary Care Provider Source Comments [facility],non-owned Affiliates and Associated Physician Practices is amultiple site organization consisting of ambulatory clinics and hospital sitesin [place], [place], [place] and [place]. This disclosure is being madepursuant to the Care Everywhere program and may not contain all information available regarding this patient. Last updated 18.[facility] Allergies No known active allergies Medications * Be aware that medications may not be up to date on this document. Alwaysverify current medications with the patient. Vit-Fe Fumarate-FA ( VITAMIN) 28-0.8 MG tablet Take 1 Tab by mouth once daily. Active oxycodone-acetam inophen (PERCOCET) 5-325 MG tablet Take 1-2 Tabs by mouth every 4 hours as needed. 40 Tab 0 12/14/2012 Active ibuprofen (MOTRIN) 600 MG tablet Take 1 Tab by mouth every 6 hours as needed. 60 Tab 0 12/14/2012 Active docusate sodium (COLACE) 100 MG capsule Take 1 Cap by mouth 2 times daily. 60 Cap 3 12/14/2012 Active Active Problems Problem Noted Date Diagnosed Date Supervision of high-risk 12/09/2012 Overview (12/09/2012): Prenatals A-/I/-/- DIC (disseminated intravascular coagulation) 08/2012 Overview (12/09/2012): 12/08/12 after FAVD Open abdominal wall wound 12/09/2012 Overview (12/09/2012): S/p BRIA after DIC following FAVD Immunizations Immunization Administration Dates Next Due TDAP (7yrs+) 12/14/2012 Social History Tobacco Use Types Packs/Day Years Used Date Smoking Tobacco: Unknown Alcohol Use Standard Drinks/Week Comments Not Asked 0 (1 standard drink = 0.6 oz pur e alcohol) Comments Unknown Sex and Gender Information Value Date Recorded Sex Assigned at Not on file Legal Sex Female 6:08 PM CDT Gender Identity Not on file Sexual Orientation Not on file Last Filed Vital Signs Vital Sign Reading Time Taken Comments Blood Pressure 110/72 03/23/2014 10:38 AM CDT Pulse 92 12/14/2012 12:30 PM CDT Temperature 36.8 C (98.3 F) 12/14/2012 12:30 PM CDT Respiratory Rate 18 12/14/2012 12:30 PM CDT Oxygen Saturation 100% 12/14/2012 12:30 PM CDT Inhaled Oxygen Concentration 40% 12/11/2012 8 :01 AM CDT Weight 75.8 kg (167 lb) 03/23/2014 10:38 AM CDT Height 154.9 cm (5' 1) 03/23/2014 10:38 AM CDT Body Mass Index 31.55 03/23/2014 10:38 AM CDT Plan of Treatment Health Maintenance Due Date Last Done Comments COLOGUARD (AGES 45-75) - COL ON CA SCREENING 1970 COLON MONITORING 1970 COLONOSCOPY - COLON CA SCREENING 1970 CT COLONOGRAPHY - COLON CA SCREENING 1970 Colorectal Cancer Screening 1970 FIT - COLON CA SCREENING 1970 FLEX SIG - COLON CA SCREENING 1970 LIPID TESTING 1970 MAMMOGRAM 1970 HIV SCREENING 1985 HEPATITIS C SCREENING 08/27/1988 HEPATITIS B VACCINE (1 of 3 - 19+ 3-dose series) 1989 PNEUMOCOCCAL VACCINE 50+ (1 of 1 - PCV) 2020 ZOSTER VACCINE (1 of 2) 2020 DTAP/TDAP/TD VACCINES (2 - T d or Tdap) 12/14/2022 12/14/2012 COVID-19 VACCINE (1 - 2023-2 5 season) 2024 DEPRESSION SCREENING 06/09/2024 INFLUENZA VACCINE (#1) 2025 HIB VACCINE Aged Out No longer eligi ble based on patient's age to complete this topic HPV VACCINE Aged Out No longer eligi ble based on patient's age to complete this topic MENINGOCOCCAL (Group B) VACC INE SHARED DECISION-MAKING Aged Out No longer eligibl e based on patient's age to complete this topic MENINGOCOCCAL GROUPS A/C/Y/W VACCINE Aged Out No longer eligible b ased on patient's age to complete this topic Insurance Advance Directives * FULL RESUSCITATION (Latest Code Status on File) Date Activated Date Inactivated Comments 12/08/2012 8:22 PM 12/14/2012 4:41 PM Care Teams Patient Sitter Relationship Specialty Start Date End Date Cisco Morgan MD [address] [place] [address] PCP - General 01/04/21
--- OUTSIDE RECORDS SUMMARY | 2025-01-20 13:53 | XMS_ITS | Clinical Summary ---
Author Organization [facility] Address [address] [place] [address] Care Team Providers Care Qa Lead Name Role Phone Ana Lilia Perez SHERI Primary Care Provider [phone] Allergies Active Allergy Reactions Criticality Noted Date Comments Oxycodone Hives 04/13/2019 Phentermine Hives 04/13/2019 Medications Cholecalciferol (VITAMIN D) 50 MCG (1999) Tab Active polycarbophil (FIBER) 625 MG tablet Take 625 mg by mouth 2 (two) times a day. Active methylPREDNISolo ne, KAUSHAL, 4 MG tabletIndication s:Screening for colon cancer Follow package directions 1 each 1 1 Active famotidine 20 MG tabletIndication s:Gastroesophage al reflux disease, unspecified whether esophagitis present Take 1 tablet (20 mg total) by mouth 2 (two) times a day. 60 tablet 11 1 Active venlafaxine XR 75 MG 24 hr capsuleIndicatio ns:Anxiety Take 1 capsule (75 mg total) by mouth 2 (two) times a day. Please note corrected directions of 1 BID 180 capsule 3 1 Active Active Problems Problem Noted Date Diagnosed Date Rectocele 08/16/2020 History of migraine headaches 12/20/2019 Nausea 12/20/2019 Gastroesophageal reflux dise ase, unspecified whether esophagitis present 12/20/2019 Mixed stress and urge urinary incontinence 04/13 Tendinopathy 04/13/2019 Mixed hyperlipidemia 04/13/2019 Vitamin D deficiency 04/13/2019 Anxiety 04/13/2019 Class 1 obesity due to exces s calories without serious comorbidity with body mass index (BMI) of 33.0 to 33.9 in adult 04/13/2019 DIC (disseminated intravascular coagulation) ( [facility]) 12/09/2012 Overview (04/13/2019): Overview: 12/08/12 after FAVD Open abdominal wall wound 12/09/2012 Overview (04/13/2019): Overview: S/p BRIA after DIC following FAVD Supervision of high-risk ([facility]) 08/2012 Overview (04/13/2019): Overview: Prenatals A-/I/-/- Resolved Problems Problem Noted Date Diagnosed Date [facility]18[facility]2020 Screening mammogram, encounter for 04/13/2019 02/18/2020 Immunizations Immunization Administration Dates Next Due Fluzone 6 Months+ Quad (0.5 mL Prefilled Syringe ) 03/23/2019 Influenza Adult (Generic) 03/25/2020 MODERNA COVID-19 (12+) MRNA, LNP-S, PF, 100 MCG/ 0.5 ML DOSE 07/12/2020,06/14/2020 Tdap (Generic) 12/14/2012 Family History Medical History Relation Comments Hypertension Father Heart Disease Maternal Grandfather Hypertension Maternal Grandfather Cancer Maternal Grandmother pancreatic Hyperlipidemia Mother Breast Cancer Sister Relation Status Comments Father Alive Maternal Grandfather Maternal Grandmother Mother Alive Sister Social History Tobacco Use Types Packs/Day Years Used Date Smoking Tobacco: Never Smokeless Tobacco: Never Alcohol Use Standard Drinks/Week Comments Yes 0 (1 standard drink = 0.6 oz pur e alcohol) 1 time every couple of months PHQ-2 Answer Date Recorded PHQ-2 Score - If the patient scores above 3, please move on to questions 3-9 0 08/15/2020 Comments No Sex and Gender Information Value Date Recorded Sex Assigned at Not on file Legal Sex Female 11:34 AM CDT Gender Identity Not on file Sexual Orientation Not on file Last Filed Vital Signs Vital Sign Reading Time Taken Comments Blood Pressure 120/72 08/15/2020 12:04 PM REAL ESTATE ACQUISITION ANALYST Pulse 60 08/15/2020 12:04 PM REAL ESTATE ACQUISITION ANALYST Temperature 37.1 C (98.7 F) 08/15/2020 12:04 PM REAL ESTATE ACQUISITION ANALYST Respiratory Rate 16 08/15/2020 12:04 PM REAL ESTATE ACQUISITION ANALYST Oxygen Saturation 98% 08/15/2020 12:04 PM REAL ESTATE ACQUISITION ANALYST Inhaled Oxygen Concentration - - Weight 80.3 kg (177 lb) 08/15/2020 12:04 PM REAL ESTATE ACQUISITION ANALYST Height 154.9 cm (5' 1) 08/15/2020 12:04 PM REAL ESTATE ACQUISITION ANALYST Body Mass Index 33.44 08/15/2020 12:04 PM REAL ESTATE ACQUISITION ANALYST Plan of Treatment Health Maintenance Due Date Last Done Comments Colorectal Cancer Screening Colonoscopy (10 Years) 1970 Annual Physical 1973 Hepatitis C 1988 Hepatitis B Vaccines (1 of 3 - 19+ 3-dose series) 1989 Pneumococcal Vaccine: 50+ Years (1 of 1 - PCV) 2020 Zoster Vaccines (1 of 2) 2020 Mammogram Screening 04/21/2021 04/21/2019 DTaP, Tdap and Td Vaccines ( 2 - Td or Tdap) 12/14/2022 12/14/2012 COVID-19 Vaccine (4 - 2023-2 5 season) 2024 06/15/2021, 07/12/2020, 06/14/2020 Meningococcal B Vaccine Aged Out No l onger eligible based on patient's age to complete this topic Meningococcal Vaccine Aged Out No francesca karly eligible based on patient's age to complete this topic RSV Immunizations Under 20 Months Aged Out No longer eligible b ased on patient's age to complete this topic Procedures Procedure Name Priority Date/Time Associated Diagnosis Comments MG SCREENING W SOLITARIO JOHNNA DIGI Routine 04/21/2019 4:33 PM REAL ESTATE ACQUISITION ANALYST Screening mammogram, encounter for from Last 3 Months or Most Recently Relevant to Health Maintenance Results * MG SCREENING W SOLITARIO JOHNNA DIGI (04/21/2019 4:33 PM REAL ESTATE ACQUISITION ANALYST) Anatomical Region Laterality Modality Breast Bilateral Mammography 04/27/2019 2:39 PM REAL ESTATE ACQUISITION ANALYST Impressions 04/27/2019 2:41 PM REAL ESTATE ACQUISITION ANALYST =====IMPRESSION:===== No mammographic findings suggestive of malignancy. ASSESSMENT: ACR BI-RADS Category 2 - Benign. RECOMMENDATION: 1: Routine screening mammogram bilateral in 1 year COMMENTS: Narrative 04/27/2019 2:41 PM REAL ESTATE ACQUISITION ANALYST EXAMINATION: Digital bilateral screening mammogram with 3-D tomosynthesis EXAM DATE/TIME: 04/21/2019 4:15 PM REASON FOR EXAM: screening No current complaint COMPARISON: 01/29/2018, 09/05/2016 TECHNIQUE: Digital screening mammography of both breasts was performed in addition to 3-D Tomosynthesis technique. This study was read with the assistance of a computer-aided detection system. TISSUE DENSITY: The breast tissue is heterogeneously dense. FINDINGS: No suspicious masses, malignant appearing calcifications, skin thickening or other abnormalities are present. No significant change from the prior exam. Ana Lilia WADE MAMMO Final Result from Last 3 Months or Most Recently Relevant to Health Maintenance Insurance INSURANCE Care Teams Qa Lead Relationship Specialty Start Date End Date Ana Lilia Perez FNP [address] [place], [place] [id number] PCP - General Nurse Practitioner Family 04/13/19
--- OUTSIDE RECORDS SUMMARY | 2025-01-20 13:53 | XMS_ITS | Clinical Summary ---
Author Organization [facility] Address [address] [place] [id number] Care Team Providers Care Wood Craftsman Name Role Phone No, Physician Primary Care Provider [phone] Allergies Active Allergy Reactions Criticality Noted Date Comments Adhesive Hives,Itching High 09/14/2021 Avocado Dizziness Low 03/05/2021 Doxycycline Rash Medium 07/26/2021 Hydrocodone Rash Medium 07/26/2021 After 07/16/21 procedure. Discuss issue with patient. Oxycodone Hives High 04/13/2019 Phentermine Hives High 04/13/2019 Medications cholecalciferol, vitamin D3, (VITAMIN D3 ORAL) Take 50,000 mg by mouth once a week Active montelukast (SINGULAIR) 10 mg tablet Take 10 mg by mouth nightly Active calcium polycarbophil (FIBER LAXATIVE, CA POLYCARBO, ORAL) Take 500 mg by mouth Active venlafaxine 75 mg tablet extended release 24hr 24 hr tablet Take 75 mg by mouth daily Active omeprazole (PriLOSEC) 40 mg capsule Active Active Problems Problem Noted Date Diagnosed Date Abnormal ECG 04/03/2022 Surgical History Surgery Date Site/Laterality Comments HYSTERECTOMY CYST REMOVAL Medical History Medical History Date Comments Hiatal hernia Enlarged LA (left atrium) Cardiomegaly Breast cancer (HCC) DIC (disseminated intravascular coagulation) Family History Medical History Relation Name Comments Hypertension Father Heart failure Maternal Grandfather Breast cancer Mother Relation Name Status Comments Father Alive Maternal Grandfather Mother Alive Social History Tobacco Use Types Packs/Day Years Used Date Smoking Tobacco: Never Tobacco Cessation:Counseling Given: Not Answered Personal Safety Answer Date Recorded Getting School Help Needed Not on file 08/23 Comments Unknown Sex and Gender Information Value Date Recorded Sex Assigned at Not on file Legal Sex Female 3:16 AM PHYSICAL MEDICINE SPECIALIST Gender Identity Not on file Sexual Orientation Not on file Obstetrics History Last Filed Vital Signs Vital Sign Reading Time Taken Comments Blood Pressure 110/70 04/03/2022 10:10 AM CDT Pulse 78 04/03/2022 10:10 AM CDT Temperature - - Respiratory Rate - - Oxygen Saturation 98% 04/03/2022 10:10 AM CDT Inhaled Oxygen Concentration - - Weight 84.1 kg (185 lb 8 oz) 04/03/2022 10:10 AM CDT Height 154.9 cm (5' 1) 04/03/2022 10:10 AM CDT Body Mass Index 35.05 04/03/2022 10:10 AM CDT Plan of Treatment Health Maintenance Due Date Last Done Comments Breast Cancer Screening-Mammogram 1970 Colon Cancer Screening-Colonoscopy 1970 Depression Screening 1970 Hepatitis C Screening 1970 Hepatitis B Screening 1988 Regular Well Visit/Exam 18-64 1988 Zoster Vaccine (1 of 2) 2020 DTaP/Tdap/Td Vaccine (2 - Td or Tdap) 12/14/2022 12/14/2012 Covid-19 Vaccine ( - 2023-2 5 season) 2024 06/15/2021, 07/12/2020, 06/14/2020 Influenza Vaccine (#1) 2025 , 03/23/2019 Pneumococcal vaccine <65 Aged Out No longer eligible based on patient's age to complete this topic Insurance [facility] [employer] [facility] H[facility]/PPO Address: [facility] [id number] [place] [address] Care Teams Wood Craftsman Relationship Specialty Start Date End Date No, Physician PCP - General 04/03/22
--- OUTSIDE RECORDS SUMMARY | 2025-01-20 13:53 | XMS_ITS | Clinical Summary ---
Author Organization [facility] Administrative Offices Address [address] [place] [id number] Care Team Providers Care Customer Services Supervisor Name Role Phone Uziel Foss MD Primary Care Provider [phone] Allergies Active Allergy Reactions Criticality Noted Date Comments Adhesive Hives,Itching High 09/14/2021 Avocado Dizziness Low 03/05/2021 Doxycycline Rash Low 07/26/2021 Hydrocodone Rash Low 07/26/2021 After 07/16/21 procedure. Discuss issue with patient. Latex Unknown 03/21/2023 Latex Sensitivity Letrozole Other (See Comments) 05/09/2022 Joint pain, Discuss w/ patient Oxycodone Hives High 01/10/2021 Phentermine Hives High 01/10/2021 Medications polycarbophil calcium (FIBERCON) 625 mg tablet Take 625 mg by mouth. Active venlafaxine (EFFEXOR XR) 75 mg Extended Release 24 hour capsule Take 1 Capsule (75 mg) by mouth daily. 30 Capsule 07/20/2021 Active omeprazole (PriLOSEC) 40 mg Capsule, Delayed Release(E.C.) 12/14/2021 Activ e MAGNESIUM ORAL Take by mouth. Active ergocalciferol, vitamin D2, (VITAMIN D ORAL) Take by mouth. Active tamoxifen (NOLVADEX) 20 mg tabletIndicatio ns:Metastatic cancer to axillary lymph nodes (CMS/HCC),Malig nant neoplasm of upper-outer quadrant of left breast in female, estrogen receptor positive (CMS/HCC),Aroma tase inhibitor-assoc iated arthralgia Take 1 Tablet (20 mg) by mouth daily. 90 Tablet 3 08/04/2024 Active Active Problems Problem Noted Date Diagnosed Date S/P TRAM (transverse rectus abdominis muscle) flap breast reconstruction 03/27/2023 Personal history of malignant neoplasm of breast 06/05/2022 Status post bilateral mastectomy 06/05/2022 Personal history of radiation therapy 06/05/2022 Malignant neoplasm of upper- outer quadrant of left female breast 01/10/2021 Cancer Staging:Clinical:Stage IIA(cT3, cN1(sn), cM0, G2, ER+, AL+, HER2-) - Signed by Carl Rma MD on 08/07/2021 Overview (09/24/2021): Stage: Clinical T2N0;ypT3(m) pN1 Date of diagnosis: 01/03/2021 Diagnosis: LEFT IDC ER(+) AL(+) Her 2(-) Pre- chemo: 06/12 LN (10 mm focus) Post-chemo: multifocal, largest 51 mm Surgeon: Raven Silverman Surgery: 03/05/2021 left SLN; 03/16/2021 right port; 07/16/2021 left lump 07/31/2021 bilateral TM; 09/24/2021 port removal Medical Oncologist: Yo Chemotherapy: Radiation Oncologist: Radiation: Hormonal therapy: Genetics: Encounters Date Type Department Care Team Description 12/22/2024 External Device Data ST[facility] ABSTRACTION Provider, Abstract 12/22/2024 External Device Data ST[facility] ABSTRACTION Provider, Abstract 12/22/2024 External Device Data [facility] ABSTRACTION Provider, Abstract 12/21/2024 External Device Data ST[facility] ABSTRACTION Provider, Abstract 11/24/2024 External Device Data STL ABSTRACTION Provider, Abstract 11/23/2024 External Device Data STL ABSTRACTION Provider, Abstract 10/28/2024 External Device Data STL ABSTRACTION Provider, Abstract 10/27/2024 External Device Data STL ABSTRACTION Provider, Abstract 10/26/2024 External Device Data STL ABSTRACTION Provider, Abstract from Last 3 Months Immunizations Immunization Administration Dates Next Due (Fluencr)(12 YR UP) COVID-19 VACCINE - EMERGENCY USE AUTHORIZATION, MRNA, [id number](PF) 30 MCG/0.3 ML IM SUSP 06/15/2021 Family History Medical History Relation Name Comments Healthy Daughter Cancer Mother Cancer Sister Healthy Son 1 Healthy Son 2 Relation Name Status Comments Brother Alive Daughter Alive Father Alive Mother Alive Sister Alive Son 1 Alive Son 2 Alive Social History Tobacco Use Types Packs/Day Years Used Date Smoking Tobacco: Never Smokeless Tobacco: Never Tobacco Cessation:Counseling Given: Not Answered Alcohol Use Standard Drinks/Week Comments Yes 0 (1 standard drink = 0.6 oz pur e alcohol) 0-1/MONTH, rare Comments No Sex and Gender Information Value Date Recorded Sex Assigned at Not on file Legal Sex Female 10:12 AM CDT Gender Identity Not on file Sexual Orientation Not on file Last Filed Vital Signs Vital Sign Reading Time Taken Comments Blood Pressure 122/75 08/04/2024 8:45 AM REGULATORY LAW SPECIALIST Pulse 85 08/04/2024 8:45 AM REGULATORY LAW SPECIALIST Temperature 36.5 C (97.7 F) 08/04/2024 8:45 AM REGULATORY LAW SPECIALIST Respiratory Rate 14 08/04/2024 8:45 AM REGULATORY LAW SPECIALIST Oxygen Saturation 98% 08/04/2024 8:45 AM REGULATORY LAW SPECIALIST Inhaled Oxygen Concentration - - Weight 85.7 kg (189 lb) 08/04/2024 8:45 AM REGULATORY LAW SPECIALIST Height 154.9 cm (5' 1) 05/30/2023 1:04 PM REGULATORY LAW SPECIALIST Body Mass Index 35.71 05/30/2023 1:04 PM REGULATORY LAW SPECIALIST Plan of Treatment Upcoming Encounters Date Type Department Care Team (Late st Contact Info) Description 02/03/2025 10:00 AM CDT Office Visit [facility] Oncology and Hematology - [place] [address] [facility] [address] [place] [address] Carl Diaz MD [address] [facility] [address] [place] [address] Health Maintenance Due Date Last Done Comments Pre-Diabetes and Diabetes Screening 1970 HEPATITIS B VACCINES (1 of 3 - 19+ 3-dose series) 1989 ZOSTER VACCINE (1 of 2) 1989 COLORECTAL SCREENING 09/02/2015 Colorectal Cancer Screening 09/02/2015 FIT-DNA Q 3 years 09/02/2015 FIT/FOBT Q 1 year 09/02/2015 Flex Sig/CT Colonography Q 5 years 09/02/2015 DTAP/TDAP/TD VACCINES (2 - T d or Tdap) 12/14/2022 12/14/2012 COVID-19 Vaccine ( season) 2024 06/15/2021, 07/12/2020, 06/14/2020 Preventative Visit- Commercial 06/09/2024 INFLUENZA VACCINE (#1) 2025 03/23/2019 Medical Devices Implanted Type Area Hammerer Helper Device Identifier Shelf Expiration Date Model / Serial / Lot Slot Floor Attendant Clip Surgiclip Ii Inderjit 9.75in [id number] - [id number] Implanted:Qty: 1 on 03/05/2021 by Madonna Burnett MD at [facility] Clip Left: Axilla MEDTRONIC - COVIDIEN 09/06/2025 [id number] / / [id number] Clip Micro [place] 6s [id number] - [id number] Implanted:Qty: 10 on 06/05/2022 by Jairo Silverman MD at [facility] Clip N/A: Abdomen VITALITEC INTL [id number] 10/06/2026 [id number] / / [id number] Slot Floor Attendant Clip Surgiclip Ii Inderjit 9.75in [id number] - [id number] Implanted:Qty: 1 on 06/05/2022 by Jairo Silverman MD at [facility] Clip N/A: Abdomen MEDTRONIC - COVIDIEN [id number] 02/06/2027 [id number] / / [id number] Slot Floor Attendant Clip Surgiclip Ii Inderjit 9.75in [id number] - [id number] Implanted:Qty: 1 on 06/05/2022 by Jairo Silverman MD at [facility] Clip N/A: Breast MED[employer] - COVIDIEN [id number] 01/06/2027 [id number] / / [id number] Slot Floor Attendant Clip Surgiclip Iii Ti Inderjit Sm 9in [id number] - [id number] Implanted:Qty: 1 on 06/05/2022 by Jairo Silverman MD at [facility] Clip N/A: Breast [employer] - COVIDIEN [id number] 09/06/2026 [id number] / / [id number] Slot Floor Attendant Clip Surgiclip Iii Ti Inderjit Sm 9in [id number] - [id number] Implanted:Qty: 1 on 06/05/2022 by Jairo Silverman MD at [facility] Clip N/A: Abdomen MED[employer] - COVIDIEN [id number] 09/06/2026 [id number] / / [id number] Core Drilling Supervisor Microvasc Anastomotic 3.0mm [id number] - [id number] Implanted:Qty: 1 on 06/05/2022 by Jairo Silverman MD at [facility] Other Left: Breast [employer]IS[employer]ANCE [id number] 05/11/2026 [id number] / / [id number] Core Drilling Supervisor Microvasc Anastomotic 3.0mm [id number] - [id number] Implanted:Qty: 1 on 06/05/2022 by Jairo Silverman MD at [facility] Other Right: Breast [employer]IANCE [id number] 09/10/2026 [id number] / / [id number] Alloderm Matrix Tissue Thick [id number] - [id number] Implanted:Qty: 1 on 07/31/2021 by Jairo Silverman MD at [facility] Tissue Right: Breast ALLERGAN- MEDICAL [id number] 10/06/2022 [id number] / / [id number] Alloderm Matrix Tissue Thick [id number] - [id number] Implanted:Qty: 1 on 07/31/2021 by Jairo Silverman MD at [facility] Tissue Left: Breast [employer]- MEDICAL [id number] 10/06/2022 [id number] / / [id number] Explanted Type Area Hammerer Helper Device Identifier Shelf Expiration Date Model / Serial / Lot Alejandro 133s Mx 600cc Implanted:Qty : 1 on 07/31/2021 by Jairo Silverman MD at [facility] Explanted:Qty : 1 on 06/05/2022 by Jairo Silverman MD at [facility] Mammary Right: Breast [employer]- MEDICAL [id number] 12/29/2023 133S-MX-14 -T / [id number] / [id number] Description:Requisition # [id number] Alejandro 133s Mx 600cc Implanted:Qty : 1 on 07/31/2021 by Jairo Silverman MD at [facility] Explanted:Qty : 1 on 06/05/2022 by Jairo Silverman MD at [facility] Mammary Left: Breast [employer] MEDICAL [id number] 01/17/2024 133S-MX-14 -T / [id number] / [id number] Description:Both Allgergan T issue Expanders are processed on requisition, [id number]. Port Powerport Clearvue 8fr Mri [id number] - [id number] Implanted:Qty : 1 on 03/16/2021 by Madonna Burnett MD at [facility] Explanted:Qty : 1 on 09/24/2021 at [facility] Port Right: Chest CR BARD- GER[employer]ASC [employer] 02/06/2022 [id number] / / [id number] Insurance [facility] [place] [address] [facility] CHOICE [id number] [facility] [place] [address] RX [employer] RX Member Subscriber Plan / Payer (Ef fective 2021-Present) Name:Mitzy Núñez Relation to Subscriber:Self Name:Mitzy Núñez Subscriber ID:Not on file Payer ID:Not on file Type:RX Commercial Address: [place] Advance Directives For more information, please contact: [phone] * Full Code (Latest Code Status on File) Date Activated Date Inactivated Comments 06/05/2022 4:46 PM 06/08/2022 2:34 PM * Full Code Date Activated Date Inactivated Comments 06/05/2022 2:22 PM 06/05/2022 4:46 PM * Full Code Date Activated Date Inactivated Comments 07/31/2021 12:41 PM 08/01/2021 2:45 PM * Full Code Date Activated Date Inactivated Comments 03/16/2021 7:56 AM 03/16/2021 11:53 AM Care Teams Customer Services Supervisor Relationship Specialty Start Date End Date Uziel Foss MD [address] [place] [id number] PCP - General Family Practice 01/10/21
[2025-01-20 14:08] LABS: Hematocrit 36.0 % (37.0-47.0); Hemoglobin 11.6 g/dL (12.0-15.0); Immature Granulocyte Percent A 0.1 % (0-0.5); Lymphocytes Absolute Auto 2.50 K/mm3 (0.9-3.2); Mean Corpuscular HGB Conc 32.2 g/dl (32-36); Mean Corpuscular Hemoglobin 27.6 pg (26-34); Mean Corpuscular Volume 85.7 fl (80-100); Nucleated Red Blood Cells Absolute Auto 0.000 K/mm3 (0.0-0.012); Nucleated Red Blood Cells Perc 0.0 % (0.0-0.2); Platelet Count Result 302 k/mm3 (150-375); Red Blood Count 4.20 M/mm3 (4.2-5.4); White Blood Count 7.0 K/mm3 (4.5-10.0)
[2025-01-20 16:31] LABS: Alanine Aminotransferase 15 U/L (6-35); Albumin Level 4.0 g/dL (3.5-5.1); Alkaline Phosphatase 93 U/L (38-126); Anion Gap 7 mmol/L (4-12); Aspartate Amino Transferase 44 U/L (14-36); Bilirubin,Total 0.2 mg/dL (0.2-1.3); Blood Urea Nitrogen 9 mg/dL (7-17); Calcium 9.1 mg/dL (8.4-10.2); Carbon Dioxide 25 mmol/L (22-30); Chloride 106 mmol/L (98-107); Estimated Glomerular Filt Rate > 60; Glucose 104 mg/dL (65-110); Potassium 3.9 mmol/L (3.4-5.0); Sodium 138 mmol/L (137-145); Total Protein 7.4 g/dL (6.3-8.2)
== END 2025-01-20 13:49 | disposition home or self-care (01) ==
LOC: ANHLAB 13:50
PROVIDERS: PCP Family Medicine; Visit Provider Internal Medicine Hematology & Oncology
DX: C50.412 Malignant neoplasm of upper-outer quadrant of left female breast (principal); Z17.0 Estrogen receptor positive status [ER+]
CPT/HCPCS: 36415; 80053; 85025; 86300